=== PATIENT | male | born 1960 | race African-American/Black ===

== ENCOUNTER 2021-09-02 13:50 | Inpatient (IN) | payer SELFPAY ==
[~2021-09-02] VITALS: Wt 95.5 kg
[2021-09-02 13:57] VITALS: TEMP 98.6
[2021-09-02 14:23] LABS: BASO % 0.1 % (0.0-2.0); GRAN # 13.2 K/mm3 (1.4-6.5); GRAN % 86.7 % (42.2-75.2); HEMOGLOBIN 14.3 g/dl (13.5-18.0); LYMPH # 1.1 K/mm3 (1.2-3.4); LYMPH % 7.3 % (20.0-51.0); MEAN CELL VOLUME 83 fl (80.0-100.0); MEAN CORPUSCULAR HEMOGLOBIN 29 pg (27-31); MEAN CORPUSCULAR HGB CONC 35 g/dl (33.0-37.0); MEAN PLATELET VOLUME 11.7 fl (7.4-10.4); MONO # 0.8 K/mm3 (0.1-0.6); MONO % 5.4 % (1.7-9.3); PLATELET COUNT 242 K/mm3 (130-400); RED BLOOD COUNT 4.96 M/mm3 (4.20-5.60)
[2021-09-02 14:30] LABS: INR 1.2 (0.8-3.0); PROTHROMBIN TIME 13.8 SECONDS (9.7-12.8)
[2021-09-02 14:32] LABS: PARTIAL THROMBOPLASTIN TIME 27.9 SECONDS (26.0-37.0)
[2021-09-02 14:39] LABS: ALBUMIN 4.6 gm/dL (3.5-5.0); BILIRUBIN,TOTAL 0.7 mg/dL (0.2-1.2); C-REACTIVE PROTEIN 0.56 mg/dL (0.00-0.50); CALCIUM 9.9 mg/dL (8.4-10.2); CREATININE, serum 1.11 mg/dL (0.72-1.25); POTASSIUM 4.1 mmol/L (3.5-4.5); TOTAL PROTEIN 8.3 gm/dL (6.2-8.1)
[2021-09-02 14:49] LABS: TROPONIN-I 0.196 ng/mL (0.00-0.033)
[2021-09-02 16:09] LABS: COLLECTION METHOD CLEAN CATCH
[2021-09-02 16:50] LABS: PH 6 (5-8); SQUAMOUS EPITHELIAL None Seen /hpf (0-10); URINE APPEARANCE Clear (CLEAR/HAZY); URINE BACTERIA None Seen /hpf (NONE SEEN); URINE BILIRUBIN Negative (NEGATIVE); URINE BLOOD Negative (NEGATIVE); URINE COLOR Yellow (YELLOW); URINE GLUCOSE 3+ (NEGATIVE); URINE KETONE 1+ (NEGATIVE); URINE LEUKOCYTE ESTERASE Negative (NEGATIVE); URINE NITRATE Negative (NEGATIVE); URINE PROTEIN(semi-quant) 1+ (NEGATIVE); URINE RBC 0-2 /hpf (0-2); URINE UROBILINOGEN Negative (NEGATIVE)
[2021-09-02 18:45] VITALS: BP 188/87; PULSE 110
[2021-09-02 18:50] VITALS: BP 157/86; PULSE 118
[2021-09-02 18:59] VITALS: BP 158/82; PULSE 119
[2021-09-02 19:03] VITALS: BP 146/78; PULSE 117
--- NOTE | 2021-09-02 20:58 | NUR ---
Patient admitted to room 316 from ED for chest pain. Report recieved from ALICE Bowling. Medications, pharmacy, and allergies reviewed. Admission paperwork completed. Patient tachy and HTN. Chest pain reported. Nitro, morphine, reglan, and heparin given as ordered. Heparin gtt started. Patient deemed fit for transfer to [facility]. Report given to ALICE Maier. EMS transported patient.
[2021-09-02 21:01] LABS: TROPONIN-I 0.511 ng/mL (0.00-0.033)
[2021-09-02 21:02] VITALS: BP 138/86; PULSE 95
--- NOTE | 2021-09-02 21:02 | NUR ---
Nitro paste placed on patient's right upper chest.
--- NOTE | 2021-09-02 21:06 | NUR ---
Faxed [facility] lab report, [phone], to Ernestine Chua, , and gave verbal report.
== END 2021-09-02 21:03 | disposition short-term general hospital (02) | DRG 281 ==
LOC: COL.ER 13:50 → MEDICAL 16:13
PROVIDERS: Family Medicine; Physician Assistant; ADMIT Internal Medicine
DX: I21.4 Non-ST elevation (NSTEMI) myocardial infarction (principal); E87.2 Acidosis; I10 Essential (primary) hypertension; R06.6 Hiccough; K80.20 Calculus of gallbladder without cholecystitis without obstruction; E11.65 Type 2 diabetes mellitus with hyperglycemia
CPT/HCPCS: J1200; J1644; J1815; J2270; J2543; J2765; J7030; Q9967

== ENCOUNTER 2022-01-01 13:11 | Emergency (ER) | payer MEDICAID ==
[~2022-01-01] VITALS: Ht 167.6 cm; Wt 81.4 kg
[2022-01-01 13:35] VITALS: BP 124/82; TEMP 98.3
[2022-01-01 14:42] LABS: BASO % 0.4 % (0.0-2.0); EOS # 0.4 K/mm3 (0.0-0.7); EOS % 5.4 % (0.0-4.0); GRAN # 4.3 K/mm3 (1.4-6.5); GRAN % 63.1 % (42.2-75.2); HEMOGLOBIN 10.6 g/dl (13.5-18.0); LYMPH # 1.7 K/mm3 (1.2-3.4); MEAN CELL VOLUME 84 fl (80.0-100.0); MEAN CORPUSCULAR HEMOGLOBIN 26 pg (27-31); MEAN CORPUSCULAR HGB CONC 31 g/dl (33.0-37.0); MEAN PLATELET VOLUME 11.2 fl (7.4-10.4); MONO # 0.5 K/mm3 (0.1-0.6); MONO % 6.8 % (1.7-9.3); PLATELET COUNT 181 K/mm3 (130-400); RED BLOOD COUNT 4.05 M/mm3 (4.20-5.60); REDCELL DISTRIBUTION WIDTH-CV 16.8 % (11.5-14.5)
[2022-01-01 14:45] LABS: HEMATOCRIT 34.2 % (42.0-52.0)
[2022-01-01 15:00] LABS: ALBUMIN 3.6 gm/dL (3.5-5.0); C-REACTIVE PROTEIN 0.31 mg/dL (0.00-0.50); CALCIUM 9.1 mg/dL (8.4-10.2); CREATININE, serum 0.78 mg/dL (0.72-1.25); POTASSIUM 4.4 mmol/L (3.5-4.5); TOTAL PROTEIN 7.2 gm/dL (6.2-8.1)
[2022-01-01 15:10] LABS: BILIRUBIN,TOTAL 0.3 mg/dL (0.2-1.2)
[2022-01-01] MEDS ORDERED: AMOXICILLIN 8751 TAB PO (15:47)
[2022-01-01 16:35] VITALS: PULSE 61
== END 2022-01-01 16:58 | disposition home or self-care (01) ==
LOC: COL.ER 13:11
PROVIDERS: Physician Assistant
DX: E11.622 Type 2 diabetes mellitus with other skin ulcer (principal); L97.523 Non-pressure chronic ulcer of other part of left foot with necrosis of muscle; Z79.01 Long term (current) use of anticoagulants